=== PATIENT | male | born 1960 | race Caucasian/White ===

== ENCOUNTER 2017-07-05 10:14 | Inpatient (IN) | payer OTHER ==
[~2017-07-05] VITALS: Ht 177.8 cm; Wt 68.2 kg
[~2017-07-05 10:14] MED LIST: BUSPIRONE HCL5 MG PO; CLEOCIN HCL300 MG PO; COL100UDC NG; COLACE100 MG PO; DILAUDID4 MG PO; FOLIC ACID1 MG PO; GABAPENTIN600 M1 PO; GLU850 PO; INDOMETHACIN50 MG PO; KEPPRA500 MG PO; LAC PO; LAXATIVE5 M1 PO; LEVAQUIN750 MG PO; LORAZEPAM1 MG PO; METFORMIN HCL850 MG PO; METFORMIN850 M1 PO; NAPROSYN250 MG PO; NAPROSYN500 MG PO; NATURE'S BLEND100 M2 PO; NEURONTIN600 MG PO; NOR10T PO; NORCO1 TA1 PO; TRAMADOL HCL50 MG PO; TRAZODONE100 MG PO; VITAMIN B1100 MG PO; ZES10 PO; ZOC20 PO; ZOCOR20 MG PO; [UNRECOGNIZED DRUG - CODE] PO
[2017-07-05 11:16] LABS: BASOPHIL % 0.2 % (0-2); RED CELL DISTRIBUTION WIDTH 13.7 % (11.5-14.5)
[2017-07-05 11:27] LABS: PLATELET COUNT 423 x10^3mcL (130-400)
[2017-07-05 11:36] LABS: CARBON DIOXIDE 26.6 mmol/L (21-32); CHLORIDE SERUM 103 mmol/L (98-107); CREATININE SERUM 0.8 mg/dL (0.7-1.3); GFR1 > 60 mL/min; GLUCOSE SERUM 162 mg/dL (74-106); POTASSIUM SERUM 3.2 mmol/L (3.5-5.1); SODIUM SERUM 136 mmol/L (136-145)
[2017-07-05 11:40] LABS: ALBUMIN 2.9 g/dL (3.4-5.0); ALKALINE PHOSPHATASE 128 U/L (46-116); ALT/SGPT 25 U/L (16-63); AMYLASE 59 U/L (25-115); AST/SGOT 32 U/L (15-37); BILIRUBIN TOTAL 0.3 mg/dL (0.20-1.00); LIPASE 75 IU/L (73-393); TOTAL PROTEIN, SERUM 6.6 g/dL (6.4-8.2)
[2017-07-05 12:23] LABS: MAGNESIUM 1.6 mg/dL (1.8-2.4)
[2017-07-05 12:29] LABS: FREE T4 3.14 ng/dL (0.76-1.46); FREE THYROXINE INDEX 3.5 ug/dL (1.4-4.5); T4(THYROXINE) 9.1 ug/dL (4.7-13.3)
[2017-07-05 12:40] LABS: T3 TOTAL 1.31 ng/mL
[2017-07-05 12:54] LABS: CHOLESTEROL/HDL RATIO 2.4
[2017-07-05 13:13] LABS: microscopic required? NO
[2017-07-05 13:23] LABS: TOTAL IRON BINDING CAPACITY 273 ug/dL (250-450)
[2017-07-05 13:24] LABS: urine erythrocyte NEGATIVE (NEGATIVE)
[2017-07-05 13:25] LABS: IRON 30 ug/dL (65-170)
[2017-07-05 13:35] LABS: AMPHETAMINE QUAL UR POSITIVE (NEG <=1000)
[2017-07-05 13:39] LABS: RED BLOOD CELLS 4.22 M/mm3 (4.52-5.90)
[2017-07-05 17:11] VITALS: BP 139/77
[2017-07-05 21:34] VITALS: BP 115/72
[2017-07-06 05:42] VITALS: BP 124/76
[2017-07-06 06:05] LABS: PLATELET COUNT 383 x10^3mcL (130-400); RED CELL DISTRIBUTION WIDTH 14.1 % (11.5-14.5)
[2017-07-06 06:17] LABS: BASOPHIL % 0 % (0-2)
[2017-07-06 06:52] LABS: CARBON DIOXIDE 24.7 mmol/L (21-32); CHLORIDE SERUM 107 mmol/L (98-107); CREATININE SERUM 0.9 mg/dL (0.7-1.3); GFR1 > 60 mL/min; GLUCOSE SERUM 124 mg/dL (74-106); MAGNESIUM 2.3 mg/dL (1.8-2.4); PHOSPHOROUS 3.4 mg/dL (2.5-4.9); SODIUM SERUM 139 mmol/L (136-145)
[2017-07-06 09:41] VITALS: BP 132/76
[2017-07-06 14:02] VITALS: BP 121/68
[2017-07-06 17:19] VITALS: BP 126/69
[2017-07-06 22:06] VITALS: BP 131/73
[2017-07-07 05:19] VITALS: BP 98/55
[2017-07-07 05:23] VITALS: BP 138/74
[2017-07-07] MEDS ORDERED: BACO TOP (06:18)
[2017-07-07] MEDS ORDERED: HIBICLENS118 ML TOP (06:18)
[2017-07-07 06:56] LABS: BASOPHIL % 1.1 % (0-2); PLATELET COUNT 385 x10^3mcL (130-400); RED CELL DISTRIBUTION WIDTH 14.1 % (11.5-14.5)
[2017-07-07 07:19] LABS: CALCIUM 8.1 mg/dL (8.5-10.1); CARBON DIOXIDE 25.4 mmol/L (21-32); CHLORIDE SERUM 104 mmol/L (98-107); CREATININE SERUM 0.8 mg/dL (0.7-1.3); GFR1 > 60 mL/min; GLUCOSE SERUM 126 mg/dL (74-106); MAGNESIUM 2.1 mg/dL (1.8-2.4); PHOSPHOROUS 2.2 mg/dL (2.5-4.9); POTASSIUM SERUM 3.9 mmol/L (3.5-5.1); SODIUM SERUM 136 mmol/L (136-145)
[2017-07-07 07:20] LABS: ALBUMIN 2.7 g/dL (3.4-5.0)
[2017-07-07 10:28] VITALS: BP 155/77
[2017-07-07 13:46] VITALS: BP 150/46
[2017-07-07 15:22] VITALS: BP 150/46
== END 2017-07-07 18:00 | disposition home or self-care (01) | DRG 228 ==
LOC: ED 10:14 → DU 11:43
PROVIDERS: Emergency Medicine; ADMIT Family Medicine
PROC: 0YU50JZ Supplement Right Inguinal Region with Synthetic Substitute, Open Approach (ICD-10-PCS; principal; 2017-07-06)
DX: K40.30 Unilateral inguinal hernia, with obstruction, without gangrene, not specified as recurrent (principal); E44.0 Moderate protein-calorie malnutrition; E83.42 Hypomagnesemia; E11.65 Type 2 diabetes mellitus with hyperglycemia; E83.39 Other disorders of phosphorus metabolism; I10 Essential (primary) hypertension; D64.9 Anemia, unspecified; E87.6 Hypokalemia; K43.9 Ventral hernia without obstruction or gangrene; F17.210 Nicotine dependence, cigarettes, uncomplicated; E78.00 Pure hypercholesterolemia, unspecified; E03.9 Hypothyroidism, unspecified; M19.90 Unspecified osteoarthritis, unspecified site; F41.1 Generalized anxiety disorder; F19.10 Other psychoactive substance abuse, uncomplicated; Z86.73 Personal history of transient ischemic attack (TIA), and cerebral infarction without residual deficits; Z59.0 Homelessness; Z68.21 Body mass index [BMI] 21.0-21.9, adult; Z90.49 Acquired absence of other specified parts of digestive tract; Z86.19 Personal history of other infectious and parasitic diseases; Z93.3 Colostomy status; Z79.899 Other long term (current) drug therapy; Z79.84 Long term (current) use of oral hypoglycemic drugs; Z80.9 Family history of malignant neoplasm, unspecified; Z83.3 Family history of diabetes mellitus
CPT/HCPCS: 83880; 84439; 94150; 99406; C1781; J0330; J0690; J1644; J2175; J2250; J2270; J2405; J2704; J2710; J3010; J3475; J3480; J3490; J7030; Q0092; Q9967

== ENCOUNTER 2018-03-14 04:35 | Inpatient (IN) | payer OTHER ==
[~2018-03-14] VITALS: Ht 177.8 cm; Wt 72.6 kg
[~2018-03-14 04:35] MED LIST changes: +BACO TOP; +HIBICLENS118 ML TOP
[2018-03-14 06:09] LABS: PLATELET COUNT 383 x10^3mcL (130-400)
[2018-03-14 06:11] LABS: RED CELL DISTRIBUTION WIDTH 15.1 % (11.5-14.5)
[2018-03-14 06:16] LABS: CALCIUM 8.6 mg/dL (8.5-10.1); CARBON DIOXIDE 27.5 mmol/L (21-32); CHLORIDE SERUM 100 mmol/L (98-107); CREATININE SERUM 0.9 mg/dL (0.7-1.3); GFR1 > 60 mL/min; GLUCOSE SERUM 115 mg/dL (74-106); SODIUM SERUM 136 mmol/L (136-145)
[2018-03-14 06:21] LABS: ALBUMIN 2.9 g/dL (3.4-5.0); ALKALINE PHOSPHATASE 142 U/L (46-116); ALT/SGPT 22 U/L (16-63); AST/SGOT 27 U/L (15-37); BILIRUBIN TOTAL 0.11 mg/dL (0.20-1.00); TOTAL PROTEIN, SERUM 7.3 g/dL (6.4-8.2)
[2018-03-14 08:29] LABS: AMPHETAMINE QUAL UR POSITIVE (See below)
[2018-03-14 08:45] VITALS: BP 145/101
[2018-03-14 09:16] LABS: UA SPECIFIC GRAVITY >=1.030 (1.005-1.035); microscopic required? YES; urine erythrocyte NEGATIVE (NEGATIVE)
[2018-03-14 09:22] VITALS: BP 104/67
[2018-03-14 11:41] LABS: T3 TOTAL 0.81 ng/mL
[2018-03-14 11:48] LABS: MAGNESIUM 2.3 mg/dL (1.8-2.4); PHOSPHOROUS 4.5 mg/dL (2.5-4.9)
[2018-03-14 12:07] LABS: FREE T4 4.78 ng/dL (0.76-1.46)
[2018-03-14 12:29] LABS: FREE THYROXINE INDEX 1.6 ug/dL (1.4-4.5); T4(THYROXINE) 4.5 ug/dL (4.7-13.3)
[2018-03-14 13:53] VITALS: Ht 177.8 cm; Wt 72.6 kg
[2018-03-14 17:29] VITALS: BP 111/68
[2018-03-14 20:43] VITALS: BP 131/60
[2018-03-15 05:29] VITALS: BP 121/68
[2018-03-15 06:12] LABS: BASOPHIL % 0.8 % (0-2)
[2018-03-15 06:27] LABS: AMYLASE 59 U/L (25-115); CALCIUM 8.9 mg/dL (8.5-10.1); CARBON DIOXIDE 27.6 mmol/L (21-32); CHLORIDE SERUM 104 mmol/L (98-107); GFR1 > 60 mL/min; GLUCOSE SERUM 156 mg/dL (74-106); MAGNESIUM 2.2 mg/dL (1.8-2.4); PHOSPHOROUS 2.6 mg/dL (2.5-4.9); POTASSIUM SERUM 4.1 mmol/L (3.5-5.1); SODIUM SERUM 139 mmol/L (136-145)
[2018-03-15 06:40] LABS: PLATELET COUNT 459 x10^3mcL (130-400); RED CELL DISTRIBUTION WIDTH 14.9 % (11.5-14.5)
[2018-03-15 09:35] VITALS: BP 133/74
[2018-03-15 13:45] VITALS: BP 124/64
[2018-03-15 18:11] VITALS: BP 109/47
[2018-03-15 20:45] VITALS: BP 134/71
[2018-03-16 05:15] LABS: BASOPHIL % 0.8 % (0-2)
[2018-03-16 05:31] VITALS: BP 142/78
[2018-03-16 05:34] LABS: ALKALINE PHOSPHATASE 113 U/L (46-116); ALT/SGPT 16 U/L (16-63); AMYLASE 69 U/L (25-115); AST/SGOT 19 U/L (15-37); BILIRUBIN TOTAL 0.19 mg/dL (0.20-1.00); CALCIUM 8.6 mg/dL (8.5-10.1); CARBON DIOXIDE 25.8 mmol/L (21-32); CHLORIDE SERUM 106 mmol/L (98-107); CREATININE SERUM 0.9 mg/dL (0.7-1.3); GFR1 > 60 mL/min; GLUCOSE SERUM 137 mg/dL (74-106); LIPASE 122 IU/L (73-393); MAGNESIUM 2.2 mg/dL (1.8-2.4); PHOSPHOROUS 3.5 mg/dL (2.5-4.9); POTASSIUM SERUM 3.9 mmol/L (3.5-5.1); SODIUM SERUM 139 mmol/L (136-145)
[2018-03-16 05:40] LABS: ALBUMIN 2.7 g/dL (3.4-5.0)
[2018-03-16 05:43] LABS: PLATELET COUNT 449 x10^3mcL (130-400); RED CELL DISTRIBUTION WIDTH 15.3 % (11.5-14.5)
[2018-03-16 10:47] VITALS: BP 153/75
[2018-03-16 13:20] VITALS: BP 135/75
[2018-03-16 17:50] VITALS: BP 158/80
[2018-03-16 20:55] VITALS: BP 121/60
[2018-03-17 05:25] VITALS: BP 133/65
[2018-03-17 06:13] LABS: ALKALINE PHOSPHATASE 124 U/L (46-116); ALT/SGPT 17 U/L (16-63); AMYLASE 104 U/L (25-115); AST/SGOT 17 U/L (15-37); BILIRUBIN TOTAL 0.11 mg/dL (0.20-1.00); CALCIUM 8.3 mg/dL (8.5-10.1); CARBON DIOXIDE 27.2 mmol/L (21-32); CHLORIDE SERUM 107 mmol/L (98-107); CREATININE SERUM 0.9 mg/dL (0.7-1.3); GFR1 > 60 mL/min; GLUCOSE SERUM 145 mg/dL (74-106); LIPASE 185 IU/L (73-393); MAGNESIUM 2.2 mg/dL (1.8-2.4); PHOSPHOROUS 3.5 mg/dL (2.5-4.9); POTASSIUM SERUM 4.1 mmol/L (3.5-5.1); SODIUM SERUM 141 mmol/L (136-145); TOTAL PROTEIN, SERUM 6.6 g/dL (6.4-8.2)
[2018-03-17 06:20] LABS: ALBUMIN 2.6 g/dL (3.4-5.0)
[2018-03-17 06:23] LABS: BASOPHIL % 0.4 % (0-2)
[2018-03-17 06:32] LABS: RED CELL DISTRIBUTION WIDTH 14.9 % (11.5-14.5)
[2018-03-17 06:33] LABS: PLATELET COUNT 502 x10^3mcL (130-400)
[2018-03-17 09:29] VITALS: BP 139/69
[2018-03-17] MEDS ORDERED: BACTROBAN22 TOP (09:50)
[2018-03-17] MEDS ORDERED: BACTRIM1 TAB PO (09:50)
[2018-03-17] MEDS ORDERED: NORCO1 TA2 PO (09:51)
[2018-03-17 10:16] VITALS: BP 139/69
== END 2018-03-17 11:38 | disposition home or self-care (01) | DRG 383 ==
LOC: ED 04:35 → DU 07:18
PROVIDERS: Emergency Medicine; General Practice; Internal Medicine; Surgery
PROC: 0JBD0ZZ Excision of Right Upper Arm Subcutaneous Tissue and Fascia, Open Approach (ICD-10-PCS; principal; 2018-03-16 08:00)
DX: L02.413 Cutaneous abscess of right upper limb (principal); E88.09 Other disorders of plasma-protein metabolism, not elsewhere classified; B95.62 Methicillin resistant Staphylococcus aureus infection as the cause of diseases classified elsewhere; B19.20 Unspecified viral hepatitis C without hepatic coma; E03.9 Hypothyroidism, unspecified; E11.9 Type 2 diabetes mellitus without complications; F11.10 Opioid abuse, uncomplicated; F12.10 Cannabis abuse, uncomplicated; I10 Essential (primary) hypertension; Z16.23 Resistance to quinolones and fluoroquinolones; Z16.29 Resistance to other single specified antibiotic; I16.0 Hypertensive urgency; F14.10 Cocaine abuse, uncomplicated; F15.90 Other stimulant use, unspecified, uncomplicated; J45.909 Unspecified asthma, uncomplicated; Z86.73 Personal history of transient ischemic attack (TIA), and cerebral infarction without residual deficits; M19.90 Unspecified osteoarthritis, unspecified site; E78.5 Hyperlipidemia, unspecified; F32.9 Major depressive disorder, single episode, unspecified; G89.29 Other chronic pain; M54.9 Dorsalgia, unspecified; Z87.891 Personal history of nicotine dependence; Z83.3 Family history of diabetes mellitus; Z82.49 Family history of ischemic heart disease and other diseases of the circulatory system; Z80.9 Family history of malignant neoplasm, unspecified
CPT/HCPCS: 83880; 84439; J1170; J1885; J2543; J3010; J3370; J3490; J7030; Q0092

== ENCOUNTER 2018-03-23 12:45 | Emergency (ER) | payer OTHER ==
[~2018-03-23] VITALS: Ht 170.2 cm; Wt 64.9 kg
[~2018-03-23 12:45] MED LIST changes: +BACTRIM1 TAB PO; +BACTROBAN22 TOP; +NORCO1 TA2 PO
[2018-03-23 13:20] VITALS: Ht 170.2 cm; Wt 64.9 kg
[2018-03-23 15:47] VITALS: BP 153/94
== END 2018-03-23 15:47 | disposition home or self-care (01) ==
LOC: ED 12:45
DX: Z48.01 Encounter for change or removal of surgical wound dressing (principal); J45.909 Unspecified asthma, uncomplicated; I10 Essential (primary) hypertension; E11.9 Type 2 diabetes mellitus without complications; F17.210 Nicotine dependence, cigarettes, uncomplicated; Z86.73 Personal history of transient ischemic attack (TIA), and cerebral infarction without residual deficits

== ENCOUNTER 2018-09-29 22:25 | Emergency (ER) | payer OTHER ==
[~2018-09-29] VITALS: Ht 177.8 cm; Wt 68.0 kg
[2018-09-29 22:31] VITALS: Ht 177.8 cm; Wt 68.0 kg
[2018-09-30 06:08] VITALS: BP 122/75
== END 2018-09-30 06:08 | disposition home or self-care (01) ==
LOC: ED 22:25
DX: S41.012A Laceration without foreign body of left shoulder, initial encounter (principal); S09.8XXA Other specified injuries of head, initial encounter; M19.90 Unspecified osteoarthritis, unspecified site; F32.9 Major depressive disorder, single episode, unspecified; F41.9 Anxiety disorder, unspecified; J45.909 Unspecified asthma, uncomplicated; J44.9 Chronic obstructive pulmonary disease, unspecified; Z86.19 Personal history of other infectious and parasitic diseases; Z79.899 Other long term (current) drug therapy; W01.0XXA Fall on same level from slipping, tripping and stumbling without subsequent striking against object, initial encounter; Y93.I9 Activity, other involving external motion; Y92.413 State road as the place of occurrence of the external cause; Y99.8 Other external cause status
CPT/HCPCS: 82962; J2001

== ENCOUNTER 2018-12-28 11:47 | Emergency (ER) | payer OTHER ==
[~2018-12-28] VITALS: Ht 177.8 cm; Wt 68.5 kg
[2018-12-28 12:04] VITALS: Ht 177.8 cm; Wt 68.5 kg
[2018-12-28 13:23] VITALS: BP 138/86
== END 2018-12-28 13:23 | disposition home or self-care (01) ==
LOC: ED 11:47
DX: L02.512 Cutaneous abscess of left hand (principal); G89.29 Other chronic pain; M54.9 Dorsalgia, unspecified; I10 Essential (primary) hypertension; E11.9 Type 2 diabetes mellitus without complications; J45.909 Unspecified asthma, uncomplicated; F41.9 Anxiety disorder, unspecified; Z98.890 Other specified postprocedural states
CPT/HCPCS: 90715; J0696; J1885; J2001; Q0092

== ENCOUNTER 2018-12-30 15:59 | Emergency (ER) | payer OTHER ==
[~2018-12-30] VITALS: Ht 177.8 cm; Wt 72.6 kg
[2018-12-30 16:02] VITALS: BP 130/82; Ht 177.8 cm; Wt 72.6 kg
== END 2018-12-30 17:00 | disposition home or self-care (01) ==
LOC: ED 15:59
DX: L02.414 Cutaneous abscess of left upper limb (principal); F11.90 Opioid use, unspecified, uncomplicated; J45.909 Unspecified asthma, uncomplicated; E11.9 Type 2 diabetes mellitus without complications; E03.9 Hypothyroidism, unspecified; Z86.73 Personal history of transient ischemic attack (TIA), and cerebral infarction without residual deficits; Z90.49 Acquired absence of other specified parts of digestive tract; Z98.890 Other specified postprocedural states

== ENCOUNTER 2020-02-14 16:42 | Emergency (ER) | payer OTHER ==
[~2020-02-14] VITALS: Ht 177.8 cm; Wt 77.1 kg
[2020-02-14 16:49] VITALS: Ht 177.8 cm; Wt 77.1 kg
[2020-02-14 18:54] VITALS: BP 121/77
== END 2020-02-14 18:54 | disposition home or self-care (01) ==
LOC: ED 16:42
DX: T18.5XXA Foreign body in anus and rectum, initial encounter (principal); J45.909 Unspecified asthma, uncomplicated; I10 Essential (primary) hypertension; E11.9 Type 2 diabetes mellitus without complications; F17.210 Nicotine dependence, cigarettes, uncomplicated; Z86.73 Personal history of transient ischemic attack (TIA), and cerebral infarction without residual deficits; Z98.890 Other specified postprocedural states; W45.8XXA Other foreign body or object entering through skin, initial encounter; Y93.89 Activity, other specified; Y92.89 Other specified places as the place of occurrence of the external cause; Y99.8 Other external cause status
CPT/HCPCS: J2270; J2405; Q0092

== ENCOUNTER 2020-05-04 01:55 | Inpatient (IN) | payer OTHER ==
[~2020-05-04] VITALS: Ht 144.8 cm; Wt 77.1 kg
[2020-05-04 02:17] VITALS: Ht 144.8 cm; Wt 77.1 kg
[2020-05-04 02:59] LABS: microscopic required? NO
[2020-05-04 03:03] LABS: BASOPHIL % 1.1 % (0-2); PLATELET COUNT 329 x10^3mcL (130-400)
[2020-05-04 03:04] LABS: RED CELL DISTRIBUTION WIDTH 15.7 % (11.5-14.5)
[2020-05-04 03:05] LABS: UA SPECIFIC GRAVITY 1.015 (1.005-1.035); urine erythrocyte NEGATIVE (NEGATIVE)
[2020-05-04 03:14] LABS: CARBON DIOXIDE 30.5 mmol/L (21-32); CHLORIDE SERUM 101 mmol/L (98-107); CREATININE SERUM 1.3 mg/dL (0.7-1.3); GFR1 60 mL/min; GLUCOSE SERUM 165 mg/dL (74-106); POTASSIUM SERUM 4.4 mmol/L (3.5-5.1); SODIUM SERUM 138 mmol/L (136-145)
[2020-05-04 03:18] LABS: ALBUMIN 3.5 g/dL (3.4-5.0); ALKALINE PHOSPHATASE 153 U/L (46-116); ALT/SGPT 51 U/L (16-63); AST/SGOT 67 U/L (15-37); BILIRUBIN TOTAL 0.31 mg/dL (0.20-1.00); LIPASE 89 IU/L (73-393); TOTAL PROTEIN, SERUM 7.2 g/dL (6.4-8.2)
[2020-05-04] MEDS ORDERED: GRALISE600 MG PO (06:19)
[2020-05-04] MEDS ORDERED: ATI0.5 PO (06:19)
[2020-05-04] MEDS ORDERED: FOLIC ACID0.8 MG PO (06:20)
[2020-05-04] MEDS ORDERED: NAPROSYN500 MG (06:21)
[2020-05-04] MEDS ORDERED: THIAMINE HCL100 MG (06:21)
[2020-05-04 06:32] LABS: AMPHETAMINE QUAL UR NONE DETECTED (See below)
[2020-05-04 09:37] LABS: CHOLESTEROL/HDL RATIO 2.3
[2020-05-04 11:00] VITALS: BP 164/83
[2020-05-04 12:00] VITALS: BP 169/86
[2020-05-04 16:53] VITALS: BP 179/96
[2020-05-04 20:32] VITALS: BP 157/88
[2020-05-05 05:52] VITALS: BP 161/88
[2020-05-05 08:13] VITALS: BP 158/94
[2020-05-05 16:26] VITALS: BP 145/77
== END 2020-05-05 18:48 | disposition left against medical advice (07) | DRG 249 ==
LOC: ED 01:55 → MU 05:30
PROVIDERS: Emergency Medicine; ADMIT Student in an Organized Health Care Education/Training Program; ATTEND Student in an Organized Health Care Education/Training Program
DX: K52.9 Noninfective gastroenteritis and colitis, unspecified (principal); B18.2 Chronic viral hepatitis C; E03.9 Hypothyroidism, unspecified; I10 Essential (primary) hypertension; E11.9 Type 2 diabetes mellitus without complications; M19.90 Unspecified osteoarthritis, unspecified site; F17.210 Nicotine dependence, cigarettes, uncomplicated; Z53.29 Procedure and treatment not carried out because of patient's decision for other reasons; Z86.73 Personal history of transient ischemic attack (TIA), and cerebral infarction without residual deficits; Z83.3 Family history of diabetes mellitus; Z82.49 Family history of ischemic heart disease and other diseases of the circulatory system; Z79.899 Other long term (current) drug therapy
CPT/HCPCS: 82962; 83880; 87046; 87046-59; C9113; G0378; G0480; J2060; J2405; J2543; J7030; Q0092